=== PATIENT | male | born 1970 | race African-American/Black ===

== ENCOUNTER 2024-10-29 09:46 | Inpatient (IN) | payer SELFPAY ==
[~2024-10-29] VITALS: Ht 182.9 cm; Wt 101.7 kg
[2024-10-29 09:48] VITALS: O2SAT 97
[2024-10-29] MEDS: SODIUM CHLORIDE 0.9% 1,000 ML IV ONE (10:21)
[2024-10-29] MEDS: KETOROLAC 30MG/ML VIAL IV STA (10:22)
[2024-10-29] MEDS: METOCLOPRAMIDE HCL 10MG/2ML VIAL IV ONE (10:22)
[2024-10-29 10:27] LABS: BASOPHILS % 0.6 % (0.0-2.0); EOSINOPHILS % 1.4 % (0.0-5.0); HEMATOCRIT. 45.8 % (42.0-52.0); HEMOGLOBIN. 15.3 g/dL (14.0-18.0); LYMPHOCYTES % 25.8 % (20.0-50.0); MEAN PLATELET VOLUME 7.5 fl (7.4-10.4); MONOCYTES % 4.3 % (2.0-8.0); NEUTROPHILS % 67.9 % (40.0-76.0); PLATELET 304 x1000/uL (130-400); RED BLOOD CELL COUNT 4.89 mill/uL (4.7-6.1); RED CELL DISTRIBUTION WIDTH 16.1 % (11.6-14.6)
[2024-10-29 10:56] LABS: CREATININE 1.0 mg/dL (0.6-1.3)
[2024-10-29 10:57] LABS: UREA NITROGEN BLOOD 8 mg/dL (9-23)
[2024-10-29] MEDS: HYDRALAZINE 20MG/ML VIAL IV ONE (12:49)
[2024-10-29] MEDS ORDERED: ONDANSETRON HCL 4MG/2ML INJ IV PRN (14:15)
[2024-10-29] MEDS ORDERED: GUAIFENESIN 200MG/10ML SUGAR FREE UDC PO PRN (14:15)
[2024-10-29] MEDS ORDERED: ACETAMINOPHEN 325MG TABLET PO PRN ×2 (14:15)
[2024-10-29] MEDS ORDERED: DOCUSATE SODIUM 100MG CAPSULE PO PRN (14:15)
[2024-10-29] MEDS ORDERED: IPRATROPIUM/ALBUTEROL 0.5-3(2.5)MG/3ML NEB HHN PRN (14:15)
[2024-10-29] MEDS ORDERED: POTASSIUM CHLORIDE 20MEQ TABLET SR PO SCH (14:30)
[2024-10-29 14:49] LABS: CLARITY URINE CLEAR (CLEAR); COLOR URINE YELLOW (YELLOW); GLUCOSE URINE NEGATIVE (NEGATIVE); KETONES URINE 2+ (NEGATIVE); LEUKOCYTE ESTERASE URINE NEGATIVE (NEGATIVE); NITRITE URINE NEGATIVE (NEGATIVE); OCCULT BLOOD URINE NEGATIVE (NEGATIVE); PH URINE 6.0 (4.5-8.0); PROTEIN URINE 1+ (NEGATIVE); SPECIFIC GRAVITY URINE 1.016 (1.005-1.030); UROBILINOGEN URINE 1.0 E.U./dL (0.2-1.0)
[2024-10-29 15:15] LABS: *AMPHETAMINES SCREEN URINE NEGATIVE (NEGATIVE); *BARBITURATES SCREEN URINE NEGATIVE (NEGATIVE); *BENZODIAZEPINES SCREEN URINE NEGATIVE (NEGATIVE); *COCAINE SCREEN URINE NEGATIVE (NEGATIVE); CANNABINOID URINE SCREEN NEGATIVE (NEGATIVE); ECSTASY MDMA SCREEN URINE NEGATIVE (NEGATIVE); METHADONE URINE SCREEN NEGATIVE (NEGATIVE); OPIATES URINE SCREEN NEGATIVE (NEGATIVE); PHENCYCLIDINE URINE SCREEN NEGATIVE (NEGATIVE)
[2024-10-29 15:17] LABS: PHOSPHORUS 2.7 mg/dL (2.5-4.9)
[2024-10-29 15:29] VITALS: BP 165/95; PULSE 90; RESP 18; TEMP 36.7
[2024-10-29 15:30] LABS: BACTERIA URINE TRACE; RBC URINE 0-2 /hpf (0-2); SQUAMOUS EPITHELIAL CELL URINE FEW /lpf (RARE/1+); WBC URINE 0-2 /hpf (0-2)
[2024-10-29 16:00] VITALS: BP 159/105; PULSE 94; RESP 20; TEMP 36.9; O2SAT 97
[2024-10-29] MEDS ORDERED: HYDRALAZINE 20MG/ML VIAL IV PRN (17:00)
[2024-10-29] MEDS ORDERED: POTASSIUM CHLORIDE 40 MEQ in DEXT 5% WATER 230 ML IV ONE (17:00)
[2024-10-29] MEDS: KCL 20MEQ/100ML X 2 FOR TOTAL KCL 40MEQ/200ML IV SCH (17:23)
[2024-10-29] MEDS: LOSARTAN 50 MG TABLET PO SCH (17:23)
[2024-10-29] MEDS: POTASSIUM CHLORIDE 20MEQ TABLET SR PO SCH (17:24)
[2024-10-29] MEDS: AMLODIPINE 5MG TABLET PO SCH (17:24)
[2024-10-29 20:00] VITALS: BP 140/90; PULSE 101; RESP 18; TEMP 36.7; O2SAT 100
[2024-10-30] VITALS: BP 150/102; PULSE 99; RESP 17; TEMP 36.6; O2SAT 98
[2024-10-30 04:00] VITALS: BP 133/92; PULSE 85; RESP 18; TEMP 36.8; O2SAT 99
[2024-10-30 06:53] LABS: BASOPHILS % 0.7 % (0.0-2.0); EOSINOPHILS % 1.5 % (0.0-5.0); HEMATOCRIT. 43.2 % (42.0-52.0); HEMOGLOBIN. 14.3 g/dL (14.0-18.0); LYMPHOCYTES % 30.4 % (20.0-50.0); MEAN PLATELET VOLUME 8.0 fl (7.4-10.4); MONOCYTES % 6.5 % (2.0-8.0); NEUTROPHILS % 60.9 % (40.0-76.0); PLATELET 259 x1000/uL (130-400); RED BLOOD CELL COUNT 4.68 mill/uL (4.7-6.1); RED CELL DISTRIBUTION WIDTH 16.2 % (11.6-14.6)
[2024-10-30 07:01] LABS: CREATININE 1.0 mg/dL (0.6-1.3)
[2024-10-30 07:02] LABS: TRIGLYCERIDE 103 mg/dL (0-150); UREA NITROGEN BLOOD 9 mg/dL (9-23)
[2024-10-30 07:03] LABS: LDL CHOLESTEROL 104 mg/dL (5-100)
[2024-10-30 08:00] VITALS: BP 153/110; PULSE 91; RESP 19; TEMP 36.8; O2SAT 95
[2024-10-30 12:00] VITALS: BP 149/109; PULSE 96; RESP 15; TEMP 36.2; O2SAT 100
[2024-10-30 16:00] VITALS: BP 139/99; PULSE 101; RESP 17; TEMP 36.4; O2SAT 98
[2024-10-30 20:00] VITALS: BP 130/95; PULSE 88; RESP 20; TEMP 36.1; O2SAT 97
[2024-10-30] MEDS: ATORVASTATIN CALCIUM 40MG TABLET PO SCH (20:56)
[2024-10-30] MEDS: ENOXAPARIN 40MG/0.4ML SYR SUBCUT SCH (20:56)
[2024-10-31] VITALS: BP 140/95; PULSE 87; RESP 19; TEMP 36.5; O2SAT 97
[2024-10-31 04:00] VITALS: BP 138/96; PULSE 87; RESP 19; TEMP 36.3; O2SAT 97
[2024-10-31 08:00] VITALS: BP 136/88; PULSE 101; RESP 18; TEMP 36.3; O2SAT 99
[2024-10-31 12:00] VITALS: BP 129/87; PULSE 101; RESP 18; TEMP 36.3; O2SAT 100
[2024-10-31 16:00] VITALS: BP 128/100; PULSE 109; RESP 18; TEMP 36.3; O2SAT 96; O2SAT 98
[2024-10-31] MEDS ORDERED: ACET-2708 MT (16:29)
[2024-10-31] MEDS ORDERED: IBUP-2029 MT (16:29)
[2024-10-31] MEDS ORDERED: ASPI-1497 MT (16:29)
[2024-10-31] MEDS ORDERED: ATOR40TA70 MT (16:29)
[2024-10-31] MEDS ORDERED: LOSA25TA26 MT (16:31)
[2024-10-31] MEDS ORDERED: COR3 MT (16:43)
[2024-10-31 20:00] VITALS: BP 147/96; PULSE 97; RESP 19; TEMP 36.3; O2SAT 97
[2024-10-31] MEDS: NAPROXEN 250MG TABLET PO PRN (20:24)
[2024-11-01 04:00] VITALS: BP 137/85; PULSE 84; RESP 18; TEMP 36.2; O2SAT 84
[2024-11-01 08:00] VITALS: BP 143/86; PULSE 105; RESP 18; TEMP 36.3; O2SAT 97
[2024-11-01 12:00] VITALS: BP 140/103; PULSE 111; RESP 18; TEMP 36.3; O2SAT 99
== END 2024-11-01 11:50 | disposition home or self-care (01) | DRG 54 ==
LOC: ER 09:46 → 6WST 13:02 → EDBEDREQTM 13:04 → EDBEDREQ 13:04
PROVIDERS: ADMIT Internal Medicine; ATTEND Internal Medicine
DX: G44.009 Cluster headache syndrome, unspecified, not intractable (principal); I11.0 Hypertensive heart disease with heart failure; I95.9 Hypotension, unspecified; E87.6 Hypokalemia; I50.9 Heart failure, unspecified; I16.0 Hypertensive urgency; Z79.899 Other long term (current) drug therapy; Z59.00 Homelessness unspecified
CPT/HCPCS: 36415; 80048; 80061; 80305; 81003; 83036; 83605; 83735; 83880; 84100; 84132; 84443; 85025; 93005; 99291; J0360; J1650; J1885; J2765; J3480; J7030